=== PATIENT | male | born 1955 | race Caucasian/White ===

== ENCOUNTER 2017-04-04 07:38 | Observation (INO) | payer OTHER ==
[2017-04-04] MEDS ORDERED: ASPIRIN EC 325 MG TAB PO ONE ×2 (07:40→08:11)
[2017-04-04] MEDS ORDERED: DIAZEPAM 5 MG TAB PO ONE (07:40)
[2017-04-04] MEDS ORDERED: FAMOTIDINE 20 MG TAB PO ONE (07:40)
[2017-04-04] MEDS ORDERED: NS 1,000 ML IV ONE (07:40)
[2017-04-04] MEDS ORDERED: diphenhydrAMINE 25 MG CAP PO ONE ×2 (07:40→08:10)
--- NOTE | 2017-04-04 08:01 | CPEKG ---
Heart Rate: 64 RR Interval: 938 P-R Interval: 156 QRSD Interval: 90 QT Interval: 404 QTC Interval: 417 P Helton: 59 QRS Helton: 44 T Wave Helton: 59 EKG Severity - NORMAL ECG - EKG Impression: SINUS RHYTHM Electronically Signed By: Syd Garzon 04-Apr-2017 09:58:48
[2017-04-04] MEDS ORDERED: FAMOTIDINE 20 MG TAB ONE (08:11)
[2017-04-04] MEDS ORDERED: DIAZEPAM 5 MG TAB ONE (08:11)
[2017-04-04 08:22] LABS: PLATELET COUNT 171 10^3/uL (150-400)
[2017-04-04 08:29] LABS: INR 1.02 (0.83-1.16); PROTIME(PATIENT) 13.6 SEC (12.0-15.0)
[2017-04-04] MEDS ORDERED: LIDOCAINE 1% 300 MG/30 ML SDV ONE (08:59)
[2017-04-04] MEDS ORDERED: fentaNYL 100 MCG/2 ML INJ ONE ×2 (08:59→10:06)
[2017-04-04] MEDS ORDERED: MIDAZOLAM 2 MG/2 ML VIAL ONE ×2 (09:00→10:07)
[2017-04-04] MEDS ORDERED: IOPAMIDOL (ISOVUE-370) 150 ML BTL IV ONE ×2 (09:00→10:06)
--- NOTE | 2017-04-04 09:09 | PDPROPOC ---
Sedation Plan of Care Sedation Plan of Care: vital signs stable, mental status noted, patient educated of risks, benefits, alternatives, patient can tolerate sedation ASA Classification: ASA 2 Planned drugs: midazolam Mallampati Score: Class 2 Mallampati Reference Image: Patient passed 3-3-2 rule?: Yes
--- NOTE | 2017-04-04 09:10 | PDHPUP ---
History & Physical Update H&P update statement: This history and physical update is based on an assessment of the patient which was completed after admission or registration (within 24 hours), but prior to the surgery/procedure. 62 year old male with CAD with high risk findings on nuclear stress test H&P update: H&P reviewed & patient examined, no change in patient's condition since H&P completed
[2017-04-04] MEDS ORDERED: BIVALIRUDIN 250 MG/5 ML VIAL IV ONE (09:58)
[2017-04-04] MEDS ORDERED: ATROPINE SULFATE 1 MG/10 ML SYR IVP PRN (11:01)
[2017-04-04] MEDS ORDERED: PRASUGREL HCL 10 MG TAB PO ONE (11:01)
[2017-04-04] MEDS ORDERED: NITROGLYCERIN 0.4 MG BTL SL PRN (11:01)
[2017-04-04] MEDS ORDERED: LORazepam 2 MG/ML INJ IVP PRN (11:01)
[2017-04-04] MEDS ORDERED: ACETAMINOPHEN 325 MG TAB PO PRN (11:01)
[2017-04-04] MEDS ORDERED: TEMAZEPAM 15 MG CAP PO PRN (11:01)
[2017-04-04] MEDS ORDERED: ONDANSETRON 4 MG/2 ML VIAL IVP PRN (11:01)
[2017-04-04] MEDS ORDERED: PRASUGREL HCL 10 MG TAB ONE (11:03)
[2017-04-04] MEDS ORDERED: NS 1,000 ML IV SCH (11:15)
--- NOTE | 2017-04-04 11:17 | PDDXCAT ---
Diagnostic Cath Note - . Date: 04/04/17 Truck Rental Manager: Vinayak Priest Access: right groin Complications: None Estimated blood loss: <50ml Closure method: Angioseal Intervention: Please refer to the diagnostic cardiac catheterization report by Dr. Peter Perez. Briefly, the patient presented with chest discomfort and had a nuclear stress test with a large area of ischemia in the LAD territory. Diagnostic cardiac catheterization demonstrated normal left ventricular systolic function, [id number] CAD of the circumflex and RCA, and serial, focal, high-grade lesions of 90% in the proximal and mid-LAD. Based on the patient's medical history and diagnostic angiography, the decision was made to perform PCI of the LAD. The patient received intravenous Angiomax. A 6 Burkinan CLS guide catheter was advanced to the ostium of the LAD. An Intuition guidewire was advanced to the apical portion of the LAD. Predilatation of the proximal and mid-LAD was performed using a 2.5 x 8 mm Energe balloon. A 3.0 x 16 mm Synergy stent was advanced to the mid-LAD lesion and was deployed at high pressure. A 3.5 x 12 mm Synergy sten was advanced to the proximal LAD lesion and was deployed at high pressure. Subsequent angiograms demonstrated 0% residual stenosis and REHAN-III flow.
--- NOTE | 2017-04-04 11:26 | CPEKG ---
Heart Rate: 57 RR Interval: 1053 P-R Interval: 180 QRSD Interval: 86 QT Interval: 408 QTC Interval: 398 P Prospect: 48 QRS Prospect: 48 T Wave Prospect: 48 EKG Severity - NORMAL ECG - EKG Impression: SINUS RHYTHM Electronically Signed By: Syd Garzon 04-Apr-2017 12:28:16
--- NOTE | 2017-04-04 16:39 | CPIP ---
[f rep st] INVASIVE CARDIAC PROCEDURE DATE OF PROCEDURE: 04/04/2017 PROCEDURE PERFORMED: 1. Left heart catheterization. 2. Left coronary angiography. 3. Right coronary angiography. 4. Left ventriculogram. 5. Right common femoral artery angiography. INDICATION FOR PROCEDURE: A 62-year-old gentleman with history of elevated calcium score of 777 with abnormal, high risk nuclear stress test findings with large area of ischemia in the anterior septal wall as well as inferior wall and evidence of transient ischemic dilatation and atypical chest sympto ms. DESCRIPTION OF PROCEDURE: After informed consent was obtained, the patient was brought to the [facility] catheterization lab where he was prepped and draped in a sterile fashion. Using 1% lidocaine the r ight groin was anesthetized. Using the modified Seldinger technique 6-Slovak catheter was placed in the right common femoral artery with the assistance of the micropuncture technique. Using a JL4 cath eter, images of the left coronary anatomy were obtained in multiple projections. JL4 catheter was ex changed over a guidewire for a JR4 catheter. JR4 catheter was used to take images of the right coron sohail anatomy. The JR4 catheter was exchanged over a guidewire for angled pigtail catheter. Angled pi gtail catheter was used to cross the aortic valve. Left ventriculogram was performed. LVEDP was ass essed. Aortic valve gradient on pullback was assessed. FINDINGS: 1. There is dual ostium of the LAD and circumflex. There is no left main. 2. Left anterior descending is a large caliber vessel that wraps around the apex of the left ventric le. There was evidence of a proximal 90% stenosis just proximal to the first septal farm products shipper. The re is a 2nd 90% stenosis in the distal proximal segment of the LAD. There is a moderate sized first diagonal branch with a 60% to 70% stenosis. 3. Left circumflex coronary artery demonstrates 30% proximal stenosis with mild luminal irregulariti es within the mid and distal segments of the vessel. 4. Right coronary artery demonstrates a 40% to 50% proximal stenosis and mild luminal irregularities through the remainder of the vessel. HEMODYNAMICS: LVEF 60% to 65%. LVEDP 16 mmHg. Aortic valve gradient none. CONCLUSION: 1. Severe single-vessel disease with 2 separate stenoses of approximately 90% in the proximal and mi d left anterior descending. There is also a 60% to 70% stenosis in the first diagonal branch. 2. 30% proximal stenosis of the circumflex vessel. 3. 40% to 50% stenosis of the proximal right coronary artery. 4. Normal hemodynamics. PLAN: Given findings on left heart catheterization today, coupled with his nuclear stress test. We will plan for percutaneous coronary intervention to the left anterior descending lesions. Case has ankur pugh reviewed with my interventional colleague, Dr. Ritesh Licea. /[id number]/MODL
[2017-04-04] MEDS: HYDROCODONE/APAP 5/325 TAB PO PRN ×2 (17:08→21:18)
[2017-04-05] MEDS: HYDROCODONE/APAP 5/325 TAB PO PRN ×4 (08:15→21:24)
[2017-04-05] MEDS: EZETIMIBE 10 MG TAB PO SCH (08:15)
[2017-04-05] MEDS: CYANO/VITAMIN B12 1000 MCG TAB PO SCH (08:16)
[2017-04-05] MEDS: PRASUGREL HCL 10 MG TAB PO SCH (13:11)
[2017-04-05] MEDS: ASPIRIN EC 325 MG TAB PO SCH (13:11)
[2017-04-05] MEDS ORDERED: APIXABAN 5 MG TAB PO SCH (13:45)
[2017-04-05] MEDS ORDERED: LISINOPRIL 5 MG TAB PO SCH (13:45)
--- NOTE | 2017-04-05 13:48 | PDCARPN ---
Cardiology Progress Note Chief Complaint: CAD S/p PCI LAD. Assessment/Plan: CAD S/p PCI LAD. On Effient, ASA 325 mg QD, Will add Lipitor 40 mg QD, Lisinopril 5 mg QD. HLP TC 187; Trig 82; HDL 59; LDL 112 with goal 70 or less. Start on Lipitor 40 mg QD. HTN BP 137/92.. Will start Lisinopril 5 mg QD. Right groin Hematoma. U/S right groin. Results show a tiny Pseudoaneurysm contiguous w/ right groin hematoma. This is too small to inject. DVT right common FEMORAL vein: Discussed with Dr Peter Perez, and with Dr Ritesh Licea. Dr Licea recommendation to start Eliquis 5 mg QD for DVT. Dr Perez would like to see him in his office tomorrow morning at his convenience -- Sunday. These plans were discussed with Mr Moeller, with good understanding. Correction for Eliquis dose for DVT:--10 mg BID for 7 days, then 5 mg BID there- after. He is intolerant to Statins, but will remain on Zetia. Dr Perez plans to get him on PCSK9 for his lipid management. Right Groin site is tender with mild edema at site of hematoma. No leg pain. Peripheral pulsed are 2+ While loading him with the Eliquis, with Effient and ASA 325 mg on board due to fresh Synergy, Drug Eluding Stent---He will need over-night stay. Plan for DC in AM if no bleeding and stable. He has not had chest pain, and telemetry RSR, no arrhythmias. These plans have been discussed with him, and he is in agreement. 04/05/17 16:37 04/05/17 16:51 Subjective: No chest pain. Right groin pain/tenderness. Reviewed/Discussed With: family, multidisciplinary team, other (Peter Perez MD, Ritesh Licea MD) Time Spent With Patient: 30 minutes Objective: Vital Signs (8 Hrs) Temp Pulse Resp BP Pulse Ox 04/05/17 12:00 36.9 C 76 12 131/68 H 97 04/05/17 07:19 36.9 C 77 12 137/94 H 98 Intake/Output (24 Hrs) 04/04/17 04/05/17 04/06/17 05:59 05:59 05:59 Intake Total 1000 Output Total 1900 Balance -900 Intake: Oral (ml) 1000 IV Intake (ml) 0 Output: Urine (ml) 1900 Urinal 1900 Other: Weight 67.1 kg Number of Voids Toilet 2 Result Diagrams: 04/04/17 08:10 04/04/17 08:10 - Physical Exam Constitutional: no apparent distress Cardiovascular: regular rate and rhythm, no murmurs, no rubs, no gallops Peripheral Pulses: 2+: femoral (R), femoral (L), dorsalis-pedis (R), dorsalis- pedis (L) Respiratory: clear to auscultate bilat, no crackles, no wheezes Genitourinary: other (right groin hematoma, with minimal ecchymosis, moderate tenderness) Skin: warm, no edema Neurologic: AAOx3 Psychiatric: cooperative, interactive ICD10 Worksheet Patient Problems: Problems Problem Status Onset CAD (coronary artery disease) Acute Dvt femoral (deep venous thrombosis) Acute
--- NOTE | 2017-04-05 14:04 | ASMTCASEMG ---
Living Arrangements What is your living Answers: With Spouse arrangement? Who do you live with? Type Of Residence What kind of residence do Answers: House you live in? Discharge Plan Comments Coordination Status Comments Notes: Pt is a 62 y/o man admitted for contrary artery disease. Pt will most likely d/c independent when medically stable. No therapies ordered at this time. CM available for changes. Plan: Independent Date Signed: 04/05/2017 02:03 PM Electronically Signed By:INEZ Richmond
[2017-04-05] MEDS: ATORVASTATIN CALCIUM 40 MG TAB PO SCH ×2 (14:16→16:21)
[2017-04-05] MEDS: APIXABAN 5 MG TAB PO SCH (21:24)
[2017-04-06] MEDS: HYDROCODONE/APAP 5/325 TAB PO PRN ×3 (04:26→10:50)
[2017-04-06 08:04] VITALS: BP 107/70; PULSE 78; RESP 12; TEMP 97.7; O2SAT 97
[2017-04-06] MEDS: EZETIMIBE 10 MG TAB PO SCH (08:36)
[2017-04-06] MEDS: APIXABAN 5 MG TAB PO SCH (08:36)
[2017-04-06] MEDS: CYANO/VITAMIN B12 1000 MCG TAB PO SCH (08:37)
[2017-04-06] MEDS: ASPIRIN EC 325 MG TAB PO SCH (08:37)
[2017-04-06] MEDS: PRASUGREL HCL 10 MG TAB PO SCH (08:37)
--- NOTE | 2017-04-08 14:56 | GDS ---
[f rep st] DISCHARGE SUMMARY PRIMARY CLASSIFICATION CONTROL CLERK: Dr. Peter Perez. ADMIT DIAGNOSES: 1. Planned cardiac angiogram with possible PCI. 2. Hyperlipidemia. DISCHARGE DIAGNOSES: 1. Coronary artery disease. 2. PCI of the LAD. 3. Deep venous thrombosis of the right femoral artery. 4. Hyperlipidemia. HISTORY OF PRESENT ILLNESS: The patient is an established patient of Dr. Peter Perez at [facility]. He had a nuclear stress test prior to this admission and was found to have ischemic dilat ation. This was a new finding compared to the previous study done in February 2015. In consultation at the clinic with Dr. Perez, the patient did report intermittent chest pressure and neck discomfort w ith exertion. Additionally, he has noted these symptoms while walking his dog. Dr. Perez recommended further evaluation with cardiac angiogram and possible stent placement. HOSPITAL COURSE: He was taken to the labor representative on April 04, 2017, by Dr. Peter Perez, finding a 90% proximal stenosis of the LAD. The right coronary artery showed a 40% to 50% proximal stenosis with mild luminal irregularities through the remainder of the vessel. LVEF was 60% to 65%. Dr. Licea d id place a Synergy drug-eluting stent to the LAD with no complications. He did have a right groin he matoma that developed the evening of 04/04/2017. On the morning of 04/05/2017, his right groin was t jacklyn with reoccurring hematoma that did respond to pressure. However, the hematoma was reoccurring with no significant aggravation of the site. He was sent to imaging to further evaluate the site. T he findings of the ultrasound of the right groin showed a tiny right groin pseudoaneurysm contiguous with the right groin hematoma. This pseudoaneurysm was too small to inject with thrombin. Secondly, deep venous thrombosis in the right common femoral vein. There was no extension into the right femo ral vein or inferior vena cava. Dr. Perez was contacted. With additional consultation with Dr. Ritesh Licea, it was determined to treat with Eliquis. Now, with triple anticoagulation therapy, it was recommended to monitor for bleeding overnight. He did do well with no further bleeding or extension of pain. At this time, it is felt he can safely be discharged. [facility] for further recommendation. He has been up ambulating in his room with no g roin site bleeding, chest pain, or shortness of breath. It is felt that he is safe for discharge at this time. ALLERGIES: He is allergic to penicillins and intolerant to statin medications. MEDICATIONS: He will go home on aspirin 325 mg once daily, Zetia 10 mg daily, herbal supplements onc e daily, vitamin B12 1000 mcg daily, Tylenol 325 mg to 650 mg every 4 hours as needed for pain, not t o exceed 3 g daily, Eliquis 10 mg twice daily for 7 days, then decrease to 5 mg twice daily, Effient 10 mg daily. PHYSICAL EXAMINATION: VITAL SIGNS: On day of discharge, blood pressure 107/70, heart rate 78 and re gular, temperature 36.5 Celsius, oxygen saturation 97%. EKG showed a normal sinus rhythm. HEART: R ate was regular. No murmurs, rubs, gallops. LUNGS: Clear to auscultation. No wheezes, rales, or r honchi. : Right groin site is tender with mild ecchymosis. No bruits were noted. Peripheral pul ses are 2+ bilateral. He felt well and ready for discharge. LABORATORY DATA: Lipids: Total cholesterol 187, triglycerides 82, HDL 59, LDL 112. CYP 2. C19 testing is pending. Hematology: White blood count 5.72, red blood count 5.09, hemoglobin 17.4, hematocrit 48.1, MCH 34.2 . PROCEDURES: As noted in course of hospitalization. FOLLOWUP PLAN: 1. He will follow up with Dr. Peter Perez in his office today, Thursday, April 06, 2017, after disch kym from hospital this morning. 2. It was emphasized to watch for groin site bleeding of the right groin due to the combination of E liquis, aspirin, and Effient. 3. Avoid heavy lifting, pushing, pulling greater than 10 pounds for 7 days. Avoid sitting in a tub of water for 7 days to prevent infection. It is okay to shower. 4. Should groin site bleed, hold firm, continuous pressure to the site and go to the nearest emergen cy department. At this time, he currently is stable for discharge. /[id number]/MODL
== END 2017-04-06 10:56 | disposition home or self-care (01) ==
LOC: FCATH 07:38 → F2W 11:02
PROVIDERS: ADMIT Internal Medicine Interventional Cardiology; ATTEND Internal Medicine Interventional Cardiology
PROC: 4A023N7 Measurement of Cardiac Sampling and Pressure, Left Heart, Percutaneous Approach (ICD-10-PCS; principal; 2017-04-04)
PROC: 027034Z Dilation of Coronary Artery, One Artery with Drug-eluting Intraluminal Device, Percutaneous Approach (ICD-10-PCS; principal; 2017-04-04)
PROC: B2111ZZ Fluoroscopy of Multiple Coronary Arteries using Low Osmolar Contrast (ICD-10-PCS; principal; 2017-04-04)
PROC: B41F1ZZ Fluoroscopy of Right Lower Extremity Arteries using Low Osmolar Contrast (ICD-10-PCS; principal; 2017-04-04)
PROC: B2151ZZ Fluoroscopy of Left Heart using Low Osmolar Contrast (ICD-10-PCS; principal; 2017-04-04)
DX: I25.10 Atherosclerotic heart disease of native coronary artery without angina pectoris (principal); I97.630 Postprocedural hematoma of a circulatory system organ or structure following a cardiac catheterization; I82.411 Acute embolism and thrombosis of right femoral vein; E78.5 Hyperlipidemia, unspecified
CPT/HCPCS: 76936; 76942; 92928; 93005; 93458; C1725; C1769; C1887; G0378; 81225-90; C1760; C1874; C9600; J0583; J1644; J2250; J3010; Q9967

== ENCOUNTER → 2017-04-30 | Outpatient (CLI) | payer OTHER | LOC: BMCIMAGING 14:29 | PROVIDERS: ATTEND Internal Medicine Cardiovascular Disease | DX: I72.4 Aneurysm of artery of lower extremity (principal) ==

== ENCOUNTER → 2017-05-01 | Outpatient (CLI) | payer OTHER ==
[~2017-05-01] MED LIST: LIDOCAINE 1% 300 MG/30 ML SDV ONE; THROMBIN (BOVINE) 5,000 UNIT VIAL TP ONE
== END ==
LOC: FIMAGING 09:40
PROVIDERS: ATTEND Internal Medicine Cardiovascular Disease
DX: I72.4 Aneurysm of artery of lower extremity (principal)

== ENCOUNTER → 2017-05-02 | Outpatient (CLI) | payer OTHER | LOC: FIMAGING 08:56 | PROVIDERS: ATTEND Radiology Diagnostic Radiology | DX: I82.890 Acute embolism and thrombosis of other specified veins (principal) ==